=== PATIENT | female | born 2000 | race Hispanic/Latino ===

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

== ENCOUNTER → 2019-12-02 09:51 | Outpatient (CLI) | payer OTHER, SELFPAY ==
[2019-12-02 09:37] VITALS: BMI 22.4
--- NOTE | 2019-12-02 09:52 | RAD_ITS ---
STUDY: X-RAY - RIGHT FOOT CLINICAL: Female, 19 years old. PREVIOUS INJURY TECHNIQUE: 3 view(s) of the foot. COMPARISON: None. FINDINGS: Normal talus, calcaneus, and tarsal bones. Normal visualized subtalar, talonavicular, calcaneocuboid, tarsal and tarsometatarsal articulations. Normal metatarsi. Normal metatarsophalangeal joint of the great toe. Normal tibial and fibular sesamoid bones. Normal interphalangeal joint of the great toe. Normal phalanges of the great toe. Normal second through fifth metatarsophalangeal joints. Normal interphalangeal joints and phalanges of the lesser toes. The soft tissue structures are unremarkable. RAD/Foot min 3 Views IMPRESSION: Normal x-ray examination of the foot. Electronically Signed: Sterling Del Real MD at 17:08 EST , Service support ,
--- NOTE | 2019-12-02 09:52 | RAD_ITS ---
STUDY: X-RAY - RIGHT ANKLE REASON FOR EXAM: Female, 19 years old. PREVIOUS INJURY TECHNIQUE: 3 view(s) of the ankle. COMPARISON: None. FINDINGS: Normal visualized distal tibia and fibula. Normal medial and lateral malleoli. Normal tibiotalar articulation and ankle mortise. Normal visualized talus and calcaneus. The visualized subtalar, talonavicular, calcaneocuboid and tarsal articulations are normal. The soft tissue structures are unremarkable. RAD/Ankle min 3 Views IMPRESSION: Normal x-ray examination of the ankle. Electronically Signed: Sterling Del Real MD at 17:05 EST , Service support ,
== END ==
PROVIDERS: PCP Pediatrics; Referring Provider Orthopaedic Surgery; Visit Provider Orthopaedic Surgery
DX: M25.571 Pain in right ankle and joints of right foot (principal); M79.671 Pain in right foot
CPT/HCPCS: 73610; 73630

== ENCOUNTER 2019-12-30 16:26 | Emergency (ER) | payer OTHER, SELFPAY ==
[2019-12-02 09:37] VITALS: BMI 22.4
[2019-12-30 16:26] VITALS: BP 130/72; PULSE 74; RESP 16; TEMP 36.7; O2SAT 97; BMI 23.9
== END 2019-12-30 18:03 | disposition left against medical advice (07) ==
LOC: ED 17:53
PROVIDERS: Emergency Provider Emergency Medicine; PCP Pediatrics
DX: Z53.21 Procedure and treatment not carried out due to patient leaving prior to being seen by health care provider (principal)

== ENCOUNTER → 2020-08-22 11:56 | Outpatient (CLI) | payer OTHER, SELFPAY | PROVIDERS: PCP Nurse Practitioner Primary Care; Referring Provider Nurse Practitioner Primary Care; Visit Provider Nurse Practitioner Primary Care | DX: R00.2 Palpitations (principal) | CPT/HCPCS: 93225; 93226 ==

== ENCOUNTER → 2020-12-29 12:41 | Outpatient (CLI) | payer OTHER, SELFPAY ==
[2021-01-02 13:02] LABS: H. PYLORI STOOL AG Negative (Negative)
== END ==
PROVIDERS: PCP Nurse Practitioner Primary Care; Referring Provider Internal Medicine Gastroenterology; Visit Provider Internal Medicine Gastroenterology
DX: K29.70 Gastritis, unspecified, without bleeding (principal)

== ENCOUNTER 2023-07-29 09:13 | Emergency (ER) | payer OTHER, SELFPAY ==
[2023-07-29 09:14] VITALS: BP 117/74; PULSE 132; RESP 18; TEMP 36.7; O2SAT 98; BMI 26.9
--- NOTE | 2023-07-29 09:35 | EX.ED.DYSGE1 ---
HPI History of Present Illness Chief Complaint: Shortness of Breath Informant: patient Narrative Narrative: 2-3 days of URI symptoms runny nose, cough, odynophagia, some chills. No definite fevers. Today myalgias all over especially chest and upper back, hurts to move. A little dyspnea but basically says it feels like there is a lot of chest congestion. She has been coughing out small amounts of green sputum on occasion that is thick. No known sick contact. No travel out of the area. Also states that she has had some minor edema in both of her ankles for the past 3 weeks or so which is why she states urgent care center here after swabbing her for COVID and flu that did not result yet. States has a history of gastroparesis but she has been undergoing treatment and does not have to take anything for it, rarely vomits. She has a history of migraines as well, she takes amitriptyline to prophylax against that and it is not new or different lately and takes no other daily medications. [facility] Medical History (Updated 07/29/23 @ 10:[address] Michael Rader MD) Gastroparesis Migraines Home Medications buspirone 10 mg tablet 10 mg PO DAILY 11/18/17 [History Last Taken 12/30/19] etonogestrel 0.12 mg-ethinyl estradiol 0.015 mg/24 hr vaginal ring vag ring vaginal 12/02/19 [History Last Taken Unknown] sertraline 100 mg tablet 100 mg PO DAILY 12/02/19 [History Last Taken 12/30/19] trazodone 50 mg tablet 50 mg PO QHS 12/02/19 [History Last Taken 12/29/19] Allergy/AdvReac Type Severity Reaction Status Date / Time amoxicillin [From Augmentin] Allergy Angioedema Verified 07/29/23 09:14 clavulanic acid Allergy Angioedema Verified 07/29/23 09:14 [From Augmentin] diphenhydramine AdvReac restless Verified 07/29/23 09:14 [From Benadryl] Social History Smoking Status: Never smoker ROS ROS ED Constitutional Constitutional ED: Reports body ache(s); Denies chills or fever(s) Eyes Eyes: Denies blurry vision, change in vision or diplopia ENT ENT ED: Reports nasal congestion, rhinorrhea and sore throat; Denies ear pain Cardiovascular Cardiovascular: Reports chest pain; Denies palpitations Respiratory/Chest Respiratory/Chest: Reports cough; Denies dyspnea Gastrointestinal Gastrointestinal: Denies abdominal pain, diarrhea, nausea or vomiting Genitourinary Genitourinary ED: Denies dysuria or hematuria Musculoskeletal Musculoskeletal: Reports back pain and myalgias; Denies neck pain Integumentary Denies abscess or rash Neurologic Neurologic: Reports headache(s); Denies paresthesias or weakness Psychiatric Psychiatric: Denies depression or suicidal thoughts Endocrine Endocrinology: Denies polydipsia or polyuria EXAM Physical Exam Const Vital Signs: 07/29/23 09:14 07/29/23 10:19 07/29/23 10:21 Temperature 98.1 F Temperature Source Temporal Pulse Rate 132 H Respiratory Rate 18 Respiratory Effort Short of Breath Normal Respiratory Depth Normal Respiratory Pattern Normal Blood Pressure 117/74 Blood Pressure Mean 88 Pulse Ox 98 Oxygen Delivery Method Room Air Room Air Positive well nourished and well developed General Appearance ED: well developed and NAD HEENT Reports moist mucous membranes HEENT Narrative: Posterior oropharynx with mild erythema status post tonsillectomy no asymmetry no significant trismus no tongue elevation. No patchy exudates. normocephalic and atraumatic Eyes PERRL and EOMs intact bilaterally Neck no lymphadenopathy, supple and no meningeal signs Resp normal respiratory effort and clear to auscultation bilaterally Cardio no murmurs Rate: regular rate and tachycardic Rhythm: regular rhythm GI normal to inspection, nondistended, normoactive bowel sounds, non-tender and non-distended Back/Spine no CVA tenderness Back/Spine Narrative: Painful range of motion with sitting up and lying back down, but able Extremity normal to inspection General Extremety ED: Negative for edema or tenderness General Extremity: Negative for edema Neuro oriented x3, CN's II-XII intact bilaterally and no sensory deficits noted Sensorium / Orientation: alert Motor Exam: strength 5/5 throughout Psych mental status grossly normal Skin Lesions: no lesions Rashes: no rashes MDM MDM MDM Narrative Medical decision making narrative: Differential here includes viral syndrome including COVID, influenza, other respiratory viruses, in addition to pneumonia which is thought to be less likely given her exam and lack of hypoxemia, mononucleosis, and less likely to be strep throat. Testing for all of this is negative except for her COVID test which is positive. Her symptoms are consistent with COVID. Her chest x-ray 2 views of my interpretation is negative for acute pneumonia, radiology concerned about the possibility early pneumonia in the lingula which I think is more likely to be atelectasis, and not COVID pneumonitis. At this time this healthy 23-year-old meets no criteria for antivirals or admission. She was given IV fluids and Toradol for her symptoms. Supportive care advised discharged with appropriate instructions. Lab Data Attestation: I reviewed the patient's lab results. Labs: Laboratory Results - last 24 hr 07/29/23 09:45 WBC 6.7 RBC 4.47 Hgb 12.4 Hct 39.0 MCV 87.2 MCH 27.7 MCHC 31.8 L RDW Std Deviation 40.3 RDW Coeff of Davi 12.6 Plt Count 251 MPV 9.5 Immature Gran % (Auto) 0.600 Neut % (Auto) 76.1 H Lymph % (Auto) 14.1 L [place] % (Auto) 8.8 Eos % (Auto) 0.1 Baso % (Auto) 0.3 Absolute Neuts (auto) 5.1 Absolute Lymphs (auto) 0.94 Nucleated RBC % 0 Sodium 137 Potassium 3.6 Chloride 106 Carbon Dioxide 26.0 Anion Gap 5 BUN 7 Creatinine 0.78 Estim Creat Clear Calc 92.00 Est GFR (MDRD) Af Amer 118 Est GFR (MDRD) Non-Af 97 BUN/Creatinine Ratio 9.0 L Glucose 118 H Calcium 8.7 Total Bilirubin 0.10 L AST 9 L ALT 16 Alkaline Phosphatase 101 Total Protein 7.1 Albumin 3.1 L Globulin 4.0 Albumin/Globulin Ratio 0.8 L Radiography Diagnostic Testing: Clinical Impression(s) from Imaging Studies Chest X-Ray 07/29/23 09:57 IMPRESSION: Mild hazy lingular opacity could be atelectasis or pneumonia. Electronically Signed: Reyes Yañez MD at 10:09 EDT , Discharge Plan Triage Chief Complaint: Shortness of Breath ED Provider: Prasanth,Michael Dx/Rx/DC Orders Clinical Impression: COVID-19 Instructions: Coronavirus Disease 2019 (COVID-19): Caring for Yourself or Others Prescriptions: No Action etonogestrel-ethinyl estradiol 0.12-0.015 mg/24 hr ring VAGINAL sertraline 100 mg tablet 100 mg PO DAILY trazodone 50 mg tablet 50 mg PO QHS buspirone 10 MG tablet 10 mg PO DAILY Primary Care Provider: MichelelogMarycruz parker NP Referrals: Marycruz Torres NP, [employer] [Primary Care Provider] - As Needed Activity Restrictions/Additional Instructions: Try to get a home portable pulse oximeter and closely watch your oxygen levels periodically. If you stay below 90% for more than a minute or so, and/or you are feeling like your breathing is getting worse, return to the emergency department for further evaluation. Currently, CDC recommendations state that you should stay home through day 5 of symptoms, then as long as symptoms are improving, if you need to go to work or somewhere else you may for days 6-10 as long as you are wearing a mask the entire time. If you are feeling better after day 10 you may resume life is normal. Disposition Disposition: Home, Self Care
--- NOTE | 2023-07-29 09:57 | RAD_ITS ---
INDICATION: pain, cough EXAMINATION/TECHNIQUE: X-RAY - XR Chest 2 Views COMPARISON: No relevant prior comparison study available FINDINGS: LINES/DEVICES: None. LUNGS: The lungs are well expanded. Mild hazy opacity in the region of the lingula. No effusion or edema. No pneumothorax. MEDIASTINUM AND CARDIOVASCULAR STRUCTURES: Cardiac silhouette not enlarged. Central airways and mediastinal contour are unremarkable. BONES AND SOFT TISSUES: Unremarkable. RAD/Chest PA and Lateral IMPRESSION: Mild hazy lingular opacity could be atelectasis or pneumonia. Electronically Signed: Reyes Yañez MD at 10:09 EDT ,
[2023-07-29 10:08] LABS: Absolute Lymphocyte Count 0.94 X10^3/uL (0.83-4.51); Absolute Neutrophil Count 5.1 X10^3/uL (2.0-7.7); Basophil# 0.02 X10^3/uL; Basophil% 0.3 % (0-1); Eosinophil# 0.01 X10^3/uL; Eosinophils% 0.1 % (0-5); Hemoglobin 12.4 g/dL (12.0-15.0); Lymphocyte # 0.94 X10^3/ul (0.83-4.51); Lymphocyte % 14.1 % (19-41); Mean Corp Hgb Conc 31.8 g/dL (32-36); Mean Corpuscular Hgb 27.7 pg (27.0-32.0); Mean Corpuscular Volume 87.2 fL (81-99); Mean Platelet Vol. 9.5 fl (6.2-12.0); Monocyte# 0.59 X10^3/uL; Monocyte% 8.8 % (0-10); NRBC Flagged by Analyzer 0 % (0-5); Neutrophil # 5.07 X10^3/uL (2.7-7.7); Neutrophil % 76.1 % (47-70); Platelet Count 251 K/mm3 (150-450); RBC Distribution Width CV 12.6 % (11.6-14.6); RBC Distribution Width SD 40.3 fl (35.1-43.9); Red Blood Count 4.47 M/mm3 (4.2-5.4); White Blood Count 6.7 K/mm3 (4.4-11.0)
[2023-07-29] MEDS: Ketorolac 30 MG/ML Syringe IV (10:09)
[2023-07-29] MEDS: 0.9% Normal Saline (1000mL) 1,000 ML 999 ML IV (10:09)
[2023-07-29 10:13] LABS: ALB/GLOB Ratio 0.8 RATIO (0.9-2.4); AST(SGOT) 9 U/L (15-37); Alanine Aminotransfer ALT/SGPT 16 U/L (13-56); Albumin, Serum 3.1 g/dL (3.2-5.0); Alkaline Phosphatase 101 U/L (45-117); Anion Gap 5 (5-15); BUN 7 mg/dL (7-18); Calcium,Total 8.7 mg/dL (8.5-10.1); Chloride 106 mmol/L (98-107); Creatinine, Serum 0.78 mg/dL (0.55-1.02); EST Glomerular Filtration Rate 97 mL/min (>60); Est Glom Filt Rate - Afr Amer 118 mL/min (>60); Glucose 118 mg/dL (74-106); Potassium 3.6 mmol/L (3.5-5.1); Protein, Total 7.1 g/dL (6.4-8.2); Sodium Level 137 mmol/L (136-145)
[2023-07-29 10:19] VITALS: O2SAT 97
[2023-07-29 10:43] VITALS: PULSE 107; RESP 14; O2SAT 97
[2023-07-29 11:02] LABS: Internal QC Validated? YES +Cl - CLEAR BKGD; Monotest Negative (Negative)
== END 2023-07-29 10:54 | disposition home or self-care (01) ==
LOC: ED 10:39
PROVIDERS: Emergency Provider Emergency Medicine; PCP Nurse Practitioner Primary Care; Visit Provider Emergency Medicine
DX: U07.1 COVID-19 (principal)
CPT/HCPCS: 71046; 80053; 85025; 86308; 87428; 87880; 96374; 99284; J7030; A4216

== ENCOUNTER 2024-10-09 09:00 | Outpatient (RCR) | payer OTHER, SELFPAY ==
--- NOTE | 2024-08-17 08:27 | HP.PTEVAL ---
Patient's Visit Information Visit Information Visit Information: MI GALLEGO is a 24 year old F referred to Physical Therapy by Dr. Julito Erwin MD with a diagnosis of L patellar tendinitis. Date of Evaluation: 08/14/24 Physical Therapist: Humberto Liriano DPT Visit Plan Frequency: 2x /Week Duration: 4 Weeks Plan: 1) quad stretching, foam rolling, glute medius strengthening. Light IASTIM to patellar tendon to prep tissue remodeling. 2) Eccentric quad strengthening. Subjective Subjective: Pt. is here today for her initial evaluation with diagnosis of L patellar tendinitis. Pt. reports she has been back to working out for a few months, doing running and some weight training. Pt. reports having L patellar pain, but has improved recently. She is still having some soreness and is not back to all of her exercises yet. Pt. is hopeful to get back to all gym exercises without increase in symptoms. Pt. has held off all running due to her pain. Pt. did have it drained by another physician. Pt. reports walking with minimal issues now. Increased pain: squatting, running, stairs. Decreases pain: stopping exercises, ice. Pt. has been taking some anti inflammatory as well. Pain L knee pain: Pain Intensity (Out of 10): 1 Pain Intensity Range: 0 and 5 Objective Objective: POSTURE: Pt. has decent posture. no marked valgus or varus. PALAPATION: tenderness at patellar tendon. No medial or lateral joint line pain. No posterior knee pain. NEURO: Pt. has normal sensation and normal DTR of BLEs. Pt. is able to rise on heels and toes. ROM: Pt. has full B knee ROM with mild increase in symptoms with end range knee flexion on L side. Pt. has marked L quad tightness compared to R side. Tightness in B HS as well. MMT: RLE: ankle 5/5 throughout; knee: ext 37.8#, flexion 23.5#; hip: flexion 17.1#, abd 15.3#, ext 21.9# LLE: ankle 5/5 throughout; knee: ext 21.8# increase NW, flexion 19.3; hip: flexion 16.4# mild increase NW, abd 13.9#, ext 20.4# Core strength: poor. GAIT: pt. has fairly normal gait pattern. STAIRS: Pt. has mild increase no worse with L stance phase of both ascending and descending. Uses BHR to complete. Special Tests L Knee Bill - Meniscus: Negative L Knee Marcin - ACL: Negative L Knee Posterior Drawer - PCL: Negative L Knee Valgus - MCL: Negative L Knee Varus - LCL: Negative L Knee Patellar Apprehension - PFS: Negative L Knee Patellar Grind - PFS: Negative Balance/Special Test Scores Lower Extremity Functional Score: 72 Goals Goal 1:: LTG: Pt. to be I with HEP. Goal Time Frame: 4-6 Weeks Goal 2:: STG: Pt. to increased quad length of L symmetrical to R side without increase in symptoms. Goal Time Frame: 2-4 Weeks Goal 3:: LTG: pt. to have symmetrical quad strengthen without increase in symptoms. Goal Time Frame: 4-6 Weeks Goal 4:: PT. to negotiate stairs with reciprocal pattern without increase in L knee pain. Goal Time Frame: 4-6 Weeks Goal 5:: LTG: Pt. to resume all gym exercises without increase in L knee pain. Goal Time Frame: 4-6 Weeks Rehabilitation Potential Physical Therapy Diagnosis: Pt. has signs and symptoms consistent with L patellar tendinitis. Pt. has some marked pain to palpation, tight quads and some quad weakness as well. Pt. would benefit from PT to address the above issues progressing back to all gym exercises without limitations. Rehabilitation Potential: Excellent Anticipated Interventions Patient/Client Instruction: Educate patient on: Condition, Plan of Care, Risk Factors and Benefits of Fitness Program For the Purpose of:: To improve decision making, To facilitate caregiver knowledge, To improve self management, To prevent re-injury and To improve ability to perform tasks related to life management Therapeutic Exercise to Include: Strength training, Power training, Endurance training, Postural training, Flexibilty training, Gait and locomotor training, Passive ROM and Active ROM For the Purpose of:: To decrease pain, To increase ROM, To improve nutrient delivery to tissue, To increase oxygenation perfusion, To improve muscle performance and motor function, To improve ability to perform ADL's, To improve health of tissue, To decrease soft tissue restriction and To increase flexibility/ROM Manual Therapy Techniques to Include: Other Comment: IASTIM For the Purpose of:: To decrease pain, To improve muscle performance and motor function and To decrease soft tissue restriction Text: Thank you for the opportunity to evaluate your patient. For Medicare and Medicare HMO plans, please review the plan of care and approve it. It will need to be FAXED BACK to us at [phone] for Medicare purposes. For Medicare only, by signing this I certify the plan of care. Please let me know if there are questions or concerns regarding this plan of care. Physician Signature: Date:
== END 2024-10-09 19:00 | disposition home or self-care (01) ==
LOC: PT 09:00
PROVIDERS: PCP Nurse Practitioner Family; Referring Provider Orthopaedic Surgery Sports Medicine; Visit Provider Orthopaedic Surgery Sports Medicine
DX: M25.562 Pain in left knee (principal); M76.52 Patellar tendinitis, left knee
CPT/HCPCS: 97161

== ENCOUNTER → 2024-11-22 | Outpatient (CLI) | payer OTHER, SELFPAY ==
--- NOTE | 2024-11-22 10:22 | MRI_ITS ---
PROCEDURE: MRI left knee without IV contrast REASON FOR EXAM: Pain TECHNIQUE: Multisequence multiplanar MR images of the left knee were obtained without the administration of intravenous contrast. COMPARISON: None. FINDINGS Increased intrasubstance signal in the body of the medial meniscus without strict criteria for tear. Lateral meniscus is intact. Anterior and posterior cruciate ligaments are intact. Medial collateral and lateral collateral ligamentous complex are intact. Mild patella Wendy. Quadriceps and patellar tendons are intact. 11 mm of lateral patellar subluxation. Flattening of the trochlear groove. Tibial tubercle-trochlear groove interval measures 18 mm. Mild edema along the superolateral aspect of Hoffa's fat pad. Articular cartilage is intact. No significant joint effusion or synovitis. Soft tissues are within normal limits. MRI/Lower Ext Joint Only (Routine) IMPRESSION: 1. Intact cruciates, collaterals and cartilage. 2. 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 See comments above. Reading Location: [facility]
== END | disposition home or self-care (01) ==
PROVIDERS: PCP Nurse Practitioner Family; Referring Provider Orthopaedic Surgery Sports Medicine; Visit Provider Orthopaedic Surgery Sports Medicine
DX: M25.562 Pain in left knee (principal); M76.52 Patellar tendinitis, left knee; M25.462 Effusion, left knee
CPT/HCPCS: 73721